=== PATIENT | female | born 1935 | race Caucasian/White ===

== ENCOUNTER 2023-04-10 09:29 | Emergency (ER) | payer MEDICARE, OTHER, SELFPAY ==
[2023-04-10 09:35] VITALS: BP 172/71
[2023-04-10 10:02] VITALS: BP 173/64
--- NOTE | 2023-04-10 10:39 | ED.GENMED ---
History of Present Illness
General
Chief Complaint: Urinary Symptoms
Source: patient
Exam Limitations: none
Time Seen by Provider: 04/10/23 09:32
Travel History
Have you had any contact with someone who has COVID-19?: No
Do you have any symptoms of coronavirus? Fever > 100 degrees, chills, cough, shortness of breath, sore throat, loss of taste or smell, muscle aches, or headache?: No
History of Present Illness
History of Present Illness:
88-year-old female who presents with urinary frequency and cloudy urine. She states she noticed it last night. She does admit that for last several weeks she has had the symptoms off and on. She denies abdominal pain or back pain. She is being
followed for weight loss but her PCP. No noted fevers.
Past History
Past History
ED Past Medical History: GERD, Hypercholesterolemia, Seizures and Psychiatric (Anxiety)
ED Past Surgical History: Appendectomy
Phy Exam
Physical Exam
Physical Exam:
CONSTITUTIONAL Patient alert and oriented to person, place and time. Well-appearing. Vital signs reviewed.
HEAD atraumatic, normocephalic.
EYES eyelids normal to inspection, Extraocular muscles intact, Conjunctiva normal, Sclera normal.
NECK normal range of motion, Trachea midline, no jugular venous distention.
RESPIRATORY CHEST No respiratory distress noted, Chest expansion equal, Bilateral breath sounds clear.
CARDIOVASCULAR regular rate and rhythm, Heart sounds normal.
ABDOMEN abdomen nontender, Bowel sounds normal. No distention.
BACK normal inspection, no obvious deformities. No CVA tenderness bilaterally
UPPER EXTREMITY range of motion normal, Motor strength normal, no cyanosis, no edema.
LOWER EXTREMITY range of motion normal, Motor strength normal, no cyanosis, no edema.
NEURO Speech normal, No focal motor deficits, [place] coma scale 15, Memory normal, Cranial Nerves intact to screening exam.
SKIN skin warm, dry, and normal in color.
PSYCHIATRIC patient oriented to person place and time, Normal affect.
Course
Orders/Labs/Results
Orders:
Orders
04/10/23 10:06
Urinalysis Reflex To Culture Stat
Date Specimen was Collected: 04/10/23
Time Specimen was Collected: :52
Urine Microscopic Reflex Cult Stat
Urine Culture Stat
HAILEY Source: U
Specimen Description:
Date Specimen was Collected: 04/10/23
Time Specimen was Collected: :52
04/10/23 11:30
Fosfomycin [Monurol] 3 gm PO ONCE ONE
Abnormal Lab Results
04/10/23
10:06
Ur Occult Blood Reflex 4+ A
(Negative)
Urine Nitrite (Reflex) Positive A
(Negative)
Leukocyte Esterase Rfl 2+ A
(Negative)
Urine RBC 3-6 A /HPF
(0-2)
Urine WBC (Reflex) >100 A /HPF
(0-5)
Urine Bacteria (Reflex) Many A
(Negative)
Vital Signs
Initial and Last Documented VS:
Initial Vital Signs
Temp Pulse Resp BP Pulse Ox
97.7 F 70 16 172/71 98
04/10/23 09:35 04/10/23 09:35 04/10/23 09:35 04/10/23 09:35 04/10/23 09:35
Last Documented Vital Signs
Temp Pulse Resp BP Pulse Ox
97.7 F 64 18 134/64 98
04/10/23 09:35 04/10/23 11:15 04/10/23 11:15 04/10/23 11:00 04/10/23 11:15
MDM/Problems Addressed
Differential Diagnosis Includes:
Urinary tract infection, pyelonephritis
MDM/Problems Addressed:
uti
*Pulse Oximetry
Patient hypoxic: no
*Critical Care Note
Total Time (30-74mins, 75-104mins- exclusive of procedures): Not Applicable
Data Reviewed
Source: patient
Further Testing Considered But Not Given:
Consider labs the patient appears well and no clinical suspicion for pyelonephritis.
Patient Management
Escalation/DeEscalation of care consider admission/obs:
88-year-old female with dysuria. Afebrile. Well-appearing. No CVA tenderness. Okay for discharge and outpatient follow-up. Is being worked up by family doctor for other more chronic symptom
ED Attending Note
-
Portions of this chart may have been created with voice recognition software.� Occasional wrong word or��sound alike� substitutions may have occurred due to the inherent limitations of voice recognition software.
Discharge Plan
Departure
Patient Disposition: Home (Routine Discharge)
Date of Disposition: 04/10/23
Time of Disposition: 12:02
Patient with high blood pressure during this ER visit?: No
Discharge Problem:
Acute UTI
Instructions: Urinary Tract Infection, Adult (DC)
Referrals:
Brad Mcclain, [Family Provider] -
Activity Restrictions/Additional Instructions:
Return immediately for fevers, back pain, vomiting, or any other concerns. Please see your doctor in follow-up in the next 3 to 5 days. Maintain proper hydration.
Interventions
Interventions:
*Risk Screen - Suicide Last Done: 04/10/23 09:35
*General Assessment Last Done: 04/10/23 09:35
*Neglect/Abuse Screening Last Done: 04/10/23 09:35
ED- Fall Risk Assessment Last Done: 04/10/23 09:35
*ED COVID-19 Vaccine History Last Done: 04/10/23 09:35
ED-Female Genitourinary Assessment Last Done: 04/10/23 10:08
[2023-04-10 11:00] VITALS: BP 134/64
[2023-04-10 11:19] LABS: Urine Albumin Trace (Neg - Trace); Urine Bilirubin Negative (Negative); Urine Character Very Cloudy (Clear); Urine Color Yellow; Urine Glucose Negative (Negative); Urine Ketone Negative (Negative); Urine Leukocyte 2+ (Negative); Urine Nitrite Positive (Negative); Urine Occult Blood 4+ (Negative); Urine Urobilinogen Negative (Neg - 1+)
[2023-04-10 11:43] LABS: Urine Mucus Few; Urine Squamous Cell 0-2 /LPF (Few)
[2023-04-10 11:44] LABS: Urine Bacteria Many (Negative); Urine White Cell >100 /HPF (0-5)
[2023-04-10] MEDS: MONUROL 3 GM PO (11:54)
[2023-04-10 12:00] VITALS: BP 123/98
== END 2023-04-10 14:24 | disposition home or self-care (01) ==
LOC: EMR 09:29
PROVIDERS: EMERGENCY PHYSICIAN Emergency Medicine; FAMILY PHYSICIAN Family Medicine
DX: N39.0 Urinary tract infection, site not specified (principal)
CPT/HCPCS: 99283; 81003; 81015; 87077; 87086; 87186